=== PATIENT | male | born 1945 | race Caucasian/White ===

== ENCOUNTER 2016-08-20 14:01 | Emergency (ER) | payer OTHER ==
--- NOTE | 2016-08-20 14:31 | ED CLINICAL REPORT ---
Clinical Report - Physicians/Mid Levels [facility] [address] [place] [address] 08/20/2016 14:05 Patient: SONIA ROTH Time Seen: 1420; initial patient contact, initial documentation, patient care assumed. Arrived- By private vehicle. 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 HISTORY OF PRESENT ILLNESS Chief Complaint: LOWER EXTREMITY PAIN and SWELLING. The quality is noted to be similar to prior episodes. Not worsened by anything and relieved by anything. This started years and is still present. Symptoms located in the area of the left leg. The patient has had redness and swelling. No difficulty walking. No bladder dysfunction, bowel dysfunction, sensory loss or motor loss. ( pt states the wound has been there for years, and has never gone away, caregiver says she is new caregiver for him, and she thinks it has been there for only a week, pt's son putting hydrocortisone cream and rubbing alcohol on it). Patient denies an injury. Similar symptoms previously: Chronically. Recent medical care: Not recently seen/assessed. REVIEW OF SYSTEMS No fever. All systems otherwise negative, except as recorded above. PAST HISTORY See nurses notes. Diabetes mellitus. SOCIAL HISTORY Never smoker. No alcohol use or drug use. No recent travel. Is a local resident. He lives with a caregiver. FAMILY HISTORY Negative. ADDITIONAL NOTES The nursing notes have been reviewed with agreement regarding the chief complaint, HPI, ROS, PMH and patient medications and allergies. PHYSICAL EXAM Vital Signs: 08/20/2016 14:11 BP: 144/62. HR: 95. RR: 18. O2 saturation: 100%. Temp: 98.5 F. Have been reviewed as normal and appear to be correct. Appearance: Alert. Oriented X3. No acute distress. Eyes: Pupils equal, round and reactive to light. Eyes normal inspection. Respiratory: No respiratory distress. Skin: Skin intact. Skin warm and dry. Normal skin color. Normal skin turgor. Extremities: Left leg: moderate erythema and mild tenderness and swelling located in the anterior aspect of mid leg. Neurovascular intact distally. (wound noted to lower leg with surrounding erythema, warmth and swelling, wound scabbed over approx 4 cm x 3cm, no dc, no swelling of wound itself, only the extremity). No laceration, abrasion, ecchymosis, puncture wound or foreign body. No deformity. No limitation of weight bearing. Lower extremities do not exhibit normal ROM. Lower extremity edema present. Extremities otherwise negative. Gait: Abnormal gait. Gait not tested due to pain. Neuro: Oriented X 3. No motor deficit. No sensory deficit. PROGRESS AND PROCEDURES Patient and caregiver counseled in person regarding the patient's stable condition and diagnosis. 14:30. Differential Diagnosis: Other possible considerations: abscess, mrsa, cellulitis, nonhealing wound, pressure ulcer. Above considerations are based on history and physical exam. Differential diagnosis was discussed with patient. Disposition: Discharged home in good and unchanged condition (14:31). Condition: good and stable. CLINICAL IMPRESSION Superficial diabetic ulcer on the left lower leg. Erythema only present. Cellulitis present. No pressure ulcer, ischemic ulcer or venous stasis ulcer. INSTRUCTIONS Protect wound and keep wound area clean. Soak in warm soapy water. Apply bacitracin twice daily. Warnings: GENERAL WARNINGS: Return or contact your physician immediately if your condition worsens or changes unexpectedly, if not improving as expected, or if other problems arise. Specifically return if problem worsens. Prescription Medications: Bactrim DS: take 1 tablet orally every 12 hours for 10 days. No refill. Substitution is not permissible. Follow-up: Follow up with your doctor in about three days even if well and for wound check. Call for an appointment. Summary of care provided to patient. Understanding of the discharge instructions verbalized by patient. (Electronically signed by Ashley Hart A.R.N.P. 08/20/2016 14:42)
--- NOTE | 2016-08-20 14:31 | ED NURSING NOTES ---
Clinical Report - Nurses [facility] [address] 08/20/2016 14:05 Patient: SONIA ROTH TRIAGE Triage time 14:12. Acuity: LEVEL 3. Chief Complaint: LEFT LOWER EXTREMITY PAIN, SWELLING and REDNESS. Alert. --14:18 Valeri Marina R.N. 14:11 08/20/16. BP: 144/62. HR: 95. RR: 18. O2 saturation: 100%. Temp: 98.5 F. Pain level now 0/10. --14:18 Valeri Marina R.N. Weight: 97.5 kg stated. Height/Length: 68 inches Per Patient. BMI: 32.7. --14:17 Valeri Marina R.N. Medications None. --14:16 Valeri Marina R.N. Allergies No Known Drug Allergy. --14:16 Valeri Marina R.N. History Arrived by private vehicle, and accompanied by family. Primary physician (Rey). No injury occurred. This occurred (about 1 weeks). 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 PAST MEDICAL HX: Diabetes mellitus. SOCIAL HX: Never smoker. No alcohol use or drug use. --14:18 Valeri Marina R.N. PHYSICAL ASSESSMENT Ambulatory to room. Patient gowned. GENERAL / NEURO / PSYCH: Oriented X 4. EXTREMITIES: Left leg: tenderness and swelling (healing sore on left lower leg). --14:19 Valeri Marina R.N. NURSING PROGRESS NOTES Patient gowned. Patient identifiers checked. Side rails up. Patient ready for evaluation- ED physician notified. --14:19 Valeri Marina R.N. DISPOSITION / DISCHARGE Departure time: 14:36. Condition at departure: unchanged. No learning barriers present. Discharge instructions provided and reviewed with the patient. Patient verbalized understanding. Written instructions provided in Cambodian. The patient was discharged home and accompanied by caregiver. He left the Emergency Department ambulatory and via private vehicle. Driving (caregiver). --14:36 Valeri Marina R.N. Locked/Released at 08/20/2016 15:28 by Valeri Marina R.N.
--- NOTE | 2016-08-20 14:31 | ED CLINICAL REPORT ---
Clinical Report - Physicians/Mid Levels [facility] [address] [place] [address] 08/20/2016 14:05 Patient: SONIA ROTH Time Seen: 1420; initial patient contact, initial documentation, patient care assumed. Arrived- By private vehicle. 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 HISTORY OF PRESENT ILLNESS Chief Complaint: LOWER EXTREMITY PAIN and SWELLING. The quality is noted to be similar to prior episodes. Not worsened by anything and relieved by anything. This started years and is still present. Symptoms located in the area of the left leg. The patient has had redness and swelling. No difficulty walking. No bladder dysfunction, bowel dysfunction, sensory loss or motor loss. ( pt states the wound has been there for years, and has never gone away, caregiver says she is new caregiver for him, and she thinks it has been there for only a week, pt's son putting hydrocortisone cream and rubbing alcohol on it). Patient denies an injury. Similar symptoms previously: Chronically. Recent medical care: Not recently seen/assessed. REVIEW OF SYSTEMS No fever. All systems otherwise negative, except as recorded above. PAST HISTORY See nurses notes. Diabetes mellitus. SOCIAL HISTORY Never smoker. No alcohol use or drug use. No recent travel. Is a local resident. He lives with a caregiver. FAMILY HISTORY Negative. ADDITIONAL NOTES The nursing notes have been reviewed with agreement regarding the chief complaint, HPI, ROS, PMH and patient medications and allergies. PHYSICAL EXAM Vital Signs: 08/20/2016 14:11 BP: 144/62. HR: 95. RR: 18. O2 saturation: 100%. Temp: 98.5 F. Have been reviewed as normal and appear to be correct. Appearance: Alert. Oriented X3. No acute distress. Eyes: Pupils equal, round and reactive to light. Eyes normal inspection. Respiratory: No respiratory distress. Skin: Skin intact. Skin warm and dry. Normal skin color. Normal skin turgor. Extremities: Left leg: moderate erythema and mild tenderness and swelling located in the anterior aspect of mid leg. Neurovascular intact distally. (wound noted to lower leg with surrounding erythema, warmth and swelling, wound scabbed over approx 4 cm x 3cm, no dc, no swelling of wound itself, only the extremity). No laceration, abrasion, ecchymosis, puncture wound or foreign body. No deformity. No limitation of weight bearing. Lower extremities do not exhibit normal ROM. Lower extremity edema present. Extremities otherwise negative. Gait: Abnormal gait. Gait not tested due to pain. Neuro: Oriented X 3. No motor deficit. No sensory deficit. PROGRESS AND PROCEDURES Patient and caregiver counseled in person regarding the patient's stable condition and diagnosis. 14:30. Differential Diagnosis: Other possible considerations: abscess, mrsa, cellulitis, nonhealing wound, pressure ulcer. Above considerations are based on history and physical exam. Differential diagnosis was discussed with patient. Disposition: Discharged home in good and unchanged condition (14:31). Condition: good and stable. CLINICAL IMPRESSION Superficial diabetic ulcer on the left lower leg. Erythema only present. Cellulitis present. No pressure ulcer, ischemic ulcer or venous stasis ulcer. INSTRUCTIONS Protect wound and keep wound area clean. Soak in warm soapy water. Apply bacitracin twice daily. Warnings: GENERAL WARNINGS: Return or contact your physician immediately if your condition worsens or changes unexpectedly, if not improving as expected, or if other problems arise. Specifically return if problem worsens. Prescription Medications: Bactrim DS: take 1 tablet orally every 12 hours for 10 days. No refill. Substitution is not permissible. Follow-up: Follow up with your doctor in about three days even if well and for wound check. Call for an appointment. Summary of care provided to patient. Understanding of the discharge instructions verbalized by patient. (Electronically signed by Ashley Hart A.R.N.P. 08/20/2016 14:42)
--- NOTE | 2016-08-20 14:31 | ED NURSING NOTES ---
Clinical Report - Nurses [facility] [place] [address] 08/20/2016 14:05 Patient: SONIA ROTH TRIAGE Triage time 14:12. Acuity: LEVEL 3. Chief Complaint: LEFT LOWER EXTREMITY PAIN, SWELLING and REDNESS. Alert. --14:18 Valeri Marina R.N. 14:11 08/20/16. BP: 144/62. HR: 95. RR: 18. O2 saturation: 100%. Temp: 98.5 F. Pain level now 0/10. --14:18 Valeri Marina R.N. Weight: 97.5 kg stated. Height/Length: 68 inches Per Patient. BMI: 32.7. --14:17 Valeri Marina R.N. Medications None. --14:16 Valeri Marina R.N. Allergies No Known Drug Allergy. --14:16 Valeri Marina R.N. History Arrived by private vehicle, and accompanied by family. Primary physician (Rey). No injury occurred. This occurred (about 1 weeks). 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 PAST MEDICAL HX: Diabetes mellitus. SOCIAL HX: Never smoker. No alcohol use or drug use. --14:18 Valeri Marina R.N. PHYSICAL ASSESSMENT Ambulatory to room. Patient gowned. GENERAL / NEURO / PSYCH: Oriented X 4. EXTREMITIES: Left leg: tenderness and swelling (healing sore on left lower leg). --14:19 Valeri Marina R.N. NURSING PROGRESS NOTES Patient gowned. Patient identifiers checked. Side rails up. Patient ready for evaluation- ED physician notified. --14:19 Valeri Marina R.N. DISPOSITION / DISCHARGE Departure time: 14:36. Condition at departure: unchanged. No learning barriers present. Discharge instructions provided and reviewed with the patient. Patient verbalized understanding. Written instructions provided in Gabonese. The patient was discharged home and accompanied by caregiver. He left the Emergency Department ambulatory and via private vehicle. Driving (caregiver). --14:36 Valeri Marina R.N. Locked/Released at 08/20/2016 15:28 by Valeri Marina R.N.
--- NOTE | 2016-08-20 15:28 | ED MED RECONCILIATION SUMMARY ---
Patient: SONIA ROTH Medication Reconciliation Report [facility] VisitID: [id number] [address] [place] [address] 71y, M Registration Date/Time: 08/20/2016 Weight: 97.5 kg Height/Length: 68 in. BMI: 32.7 ALLERGIES: No Known Drug Allergy The patient's Home Medications are listed below: NONE. The source(s) of the original Home Medication information: Not obtained. The following Medications were given to the patient in the Emergency Department: None. The following Medications were prescribed to the patient: Bactrim DS: take 1 tablet orally every 12 hours for 10 days. No refill. Substitution is not permissible. -- Ashley Hart A.R.N.P.
--- NOTE | 2016-08-20 15:28 | ED MAR SUMMARY ---
..... Medication Administration Record [facility] [address] [place] [address] Patient: SONIA ROTH Visit ID: [id number] 71y, M Weight: 97.5 kg Height/Length: 68 in BMI: 32.7 ALLERGIES: No Known Drug Allergy
--- NOTE | 2016-08-20 15:28 | ED DISCHARGE INSTRUCTIONS ---
Patient: SONIA ROTH General Instructions [facility] VisitID: [id number] [place] [address] 71y, M Registration Date/Time: 08/20/2016 Superficial diabetic ulcer on the left lower leg. Erythema only present. Cellulitis present. No pressure ulcer, ischemic ulcer or venous stasis ulcer. INSTRUCTIONS Protect wound and keep wound area clean. Soak in warm soapy water. Apply bacitracin twice daily. Warnings: GENERAL WARNINGS: Return or contact your physician immediately if your condition worsens or changes unexpectedly, if not improving as expected, or if other problems arise. Specifically return if problem worsens. Prescription Medications: Bactrim DS: take 1 tablet orally every 12 hours for 10 days. No refill. Substitution is not permissible. Follow-up: Follow up with your doctor in about three days even if well and for wound check. Call for an appointment. Summary of care provided to patient. Understanding of the discharge instructions verbalized by patient. ADDITIONAL INFORMATION Sulfamethoxazole, Trimethoprim Oral tablet What is this medicine? SULFAMETHOXAZOLE; TRIMETHOPRIM or SMX-TMP (suhl fuh meth OK rosita zohl; trye METH oh prim) is a combination of a sulfonamide antibiotic and a second antibiotic, trimethoprim. It is used to treat or prevent certain kinds of bacterial infections. It will not work for colds, flu, or other viral infections. How should I use this medicine? Take this medicine by mouth with a full glass of water. Follow the directions on the prescription label. Take your medicine at regular intervals. Do not take it more often than directed. Do not skip doses or stop your medicine early. Talk to your upholstery bundler regarding the use of this medicine in children. Special care may be needed. This medicine has been used in children as young as 2 months of age. What side effects may I notice from receiving this medicine? Side effects that you should report to your doctor or health elderly caregiver as soon as possible: allergic reactions like skin rash or hives, swelling of the face, lips, or tongue breathing problems fever or chills, sore throat irregular heartbeat, chest pain joint or muscle pain pain or difficulty passing urine red pinpoint spots on skin redness, blistering, peeling or loosening of the skin, including inside the mouth unusual bleeding or bruising unusually weak or tired yellowing of the eyes or skin Side effects that usually do not require medical attention (report to your doctor or health elderly caregiver if they continue or are bothersome): diarrhea dizziness headache loss of appetite nausea, vomiting nervousness What may interact with this medicine? Do not take this medicine with any of the following medications: aminobenzoate potassium dofetilide metronidazole This medicine may also interact with the following medications: TAYA inhibitors like benazepril, enalapril, lisinopril, and ramipril cyclosporine digoxin diuretics indomethacin medicines for diabetes methenamine methotrexate phenytoin potassium supplements pyrimethamine sulfinpyrazone tricyclic antidepressants warfarin What if I miss a dose? If you miss a dose, take it as soon as you can. If it is almost time for your next dose, take only that dose. Do not take double or extra doses. Where should I keep my medicine? Keep out of the reach of children. Store at room temperature between 20 to 25 degrees C (68 to 77 degrees F). Protect from light. Throw away any unused medicine after the expiration date. What should I tell my health care provider before I take this medicine? They need to know if you have any of these conditions: anemia asthma being treated with anticonvulsants if you frequently drink alcohol containing drinks kidney disease liver disease low level of folic acid or [id number] dehydrogenase poor nutrition or malabsorption porphyria severe allergies thyroid disorder an unusual or allergic reaction to sulfamethoxazole, trimethoprim, sulfa drugs, other medicines, foods, dyes, or preservatives or trying to get breast-feeding What should I watch for while using this medicine? Tell your doctor or health elderly caregiver if your symptoms do not improve. Drink several glasses of water a day to reduce the risk of kidney problems. Do not treat diarrhea with over the counter products. Contact your doctor if you have diarrhea that lasts more than 2 days or if it is severe and watery. This medicine can make you more sensitive to the sun. Keep out of the sun. If you cannot avoid being in the sun, wear protective clothing and use a sunscreen. Do not use sun lamps or tanning beds/booths. You have been given the following additional information: Sulfamethoxazole, Trimethoprim Oral tablet (Electronically signed by Ashley Hart A.R.NCookiePCookie 08/20/2016 14:42)
--- NOTE | 2016-08-20 15:28 | ED DISCHARGE INSTRUCTIONS ---
Patient: SONIA ROTH General Instructions [facility] VisitID: [id number] [place] [address] 71y, M Registration Date/Time: 08/20/2016 Superficial diabetic ulcer on the left lower leg. Erythema only present. Cellulitis present. No pressure ulcer, ischemic ulcer or venous stasis ulcer. INSTRUCTIONS Protect wound and keep wound area clean. Soak in warm soapy water. Apply bacitracin twice daily. Warnings: GENERAL WARNINGS: Return or contact your physician immediately if your condition worsens or changes unexpectedly, if not improving as expected, or if other problems arise. Specifically return if problem worsens. Prescription Medications: Bactrim DS: take 1 tablet orally every 12 hours for 10 days. No refill. Substitution is not permissible. Follow-up: Follow up with your doctor in about three days even if well and for wound check. Call for an appointment. Summary of care provided to patient. Understanding of the discharge instructions verbalized by patient. ADDITIONAL INFORMATION Sulfamethoxazole, Trimethoprim Oral tablet What is this medicine? SULFAMETHOXAZOLE; TRIMETHOPRIM or SMX-TMP (suhl fuh meth OK rosita zohl; trye METH oh prim) is a combination of a sulfonamide antibiotic and a second antibiotic, trimethoprim. It is used to treat or prevent certain kinds of bacterial infections. It will not work for colds, flu, or other viral infections. How should I use this medicine? Take this medicine by mouth with a full glass of water. Follow the directions on the prescription label. Take your medicine at regular intervals. Do not take it more often than directed. Do not skip doses or stop your medicine early. Talk to your kosher butcher regarding the use of this medicine in children. Special care may be needed. This medicine has been used in children as young as 2 months of age. What side effects may I notice from receiving this medicine? Side effects that you should report to your doctor or health pharmacy customer care specialist as soon as possible: allergic reactions like skin rash or hives, swelling of the face, lips, or tongue breathing problems fever or chills, sore throat irregular heartbeat, chest pain joint or muscle pain pain or difficulty passing urine red pinpoint spots on skin redness, blistering, peeling or loosening of the skin, including inside the mouth unusual bleeding or bruising unusually weak or tired yellowing of the eyes or skin Side effects that usually do not require medical attention (report to your doctor or health pharmacy customer care specialist if they continue or are bothersome): diarrhea dizziness headache loss of appetite nausea, vomiting nervousness What may interact with this medicine? Do not take this medicine with any of the following medications: aminobenzoate potassium dofetilide metronidazole This medicine may also interact with the following medications: TAYA inhibitors like benazepril, enalapril, lisinopril, and ramipril cyclosporine digoxin diuretics indomethacin medicines for diabetes methenamine methotrexate phenytoin potassium supplements pyrimethamine sulfinpyrazone tricyclic antidepressants warfarin What if I miss a dose? If you miss a dose, take it as soon as you can. If it is almost time for your next dose, take only that dose. Do not take double or extra doses. Where should I keep my medicine? Keep out of the reach of children. Store at room temperature between 20 to 25 degrees C (68 to 77 degrees F). Protect from light. Throw away any unused medicine after the expiration date. What should I tell my health care provider before I take this medicine? They need to know if you have any of these conditions: anemia asthma being treated with anticonvulsants if you frequently drink alcohol containing drinks kidney disease liver disease low level of folic acid or [id number] dehydrogenase poor nutrition or malabsorption porphyria severe allergies thyroid disorder an unusual or allergic reaction to sulfamethoxazole, trimethoprim, sulfa drugs, other medicines, foods, dyes, or preservatives or trying to get breast-feeding What should I watch for while using this medicine? Tell your doctor or health pharmacy customer care specialist if your symptoms do not improve. Drink several glasses of water a day to reduce the risk of kidney problems. Do not treat diarrhea with over the counter products. Contact your doctor if you have diarrhea that lasts more than 2 days or if it is severe and watery. This medicine can make you more sensitive to the sun. Keep out of the sun. If you cannot avoid being in the sun, wear protective clothing and use a sunscreen. Do not use sun lamps or tanning beds/booths. You have been given the following additional information: Sulfamethoxazole, Trimethoprim Oral tablet (Electronically signed by Ashley Hart A.R.NCookiePCookie 08/20/2016 14:42)
--- NOTE | 2016-08-20 15:28 | ED MAR SUMMARY ---
..... Medication Administration Record [facility] [address] [place] [address] Patient: SONIA ROTH Visit ID: [id number] 71y, M Weight: 97.5 kg Height/Length: 68 in BMI: 32.7 ALLERGIES: No Known Drug Allergy
--- NOTE | 2016-08-20 15:28 | ED MED RECONCILIATION SUMMARY ---
Patient: SONIA ROTH Medication Reconciliation Report [facility] VisitID: [id number] [address] [place] [address] 71y, M Registration Date/Time: 08/20/2016 Weight: 97.5 kg Height/Length: 68 in. BMI: 32.7 ALLERGIES: No Known Drug Allergy The patient's Home Medications are listed below: NONE. The source(s) of the original Home Medication information: Not obtained. The following Medications were given to the patient in the Emergency Department: None. The following Medications were prescribed to the patient: Bactrim DS: take 1 tablet orally every 12 hours for 10 days. No refill. Substitution is not permissible. -- Ashley Hart A.R.N.P.
== END 2016-08-20 14:35 | disposition home or self-care (01) ==
LOC: ED SRH 14:01
DX: E11.622 Type 2 diabetes mellitus with other skin ulcer (principal); L97.829 Non-pressure chronic ulcer of other part of left lower leg with unspecified severity; E11.628 Type 2 diabetes mellitus with other skin complications; L03.116 Cellulitis of left lower limb

== ENCOUNTER 2016-10-21 11:26 | Emergency (ER) | payer OTHER ==
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
--- NOTE | 2016-10-24 05:07 | ED ORDER SUMMARY ---
..... Patient: SONIA ROTH OrderSheet [facility] VisitID: [id number] [address] [place] [address] 71y, M Registration Date/Time: 10/21/2016 ORDER SHEET Weight: 90.7 kg (stated) Allergies: No Known Drug Allergy GENERAL ORDERS: MEDICATION ORDERS: Penicillin V Potassium PO 500 mg (NOW) (12:00 10/21/2016 Lisset Gillespie) (Ack 12:12 Hope R.NCookie) (12:23 Hope R.N.) IV FLUIDS: ORDER SHEET NOTES: [Electronically signed by Alba De Jesus R.N. (12:31 10/21/2016)] [Electronically signed by Ceferino Kan Dr. (05:07 10/24/2016)] [Electronically locked/signed by Alba De Jesus R.N. (12:10/21/2016)]
--- NOTE | 2016-10-24 05:07 | ED ORDER SUMMARY ---
..... Patient: SONIA ROTH OrderSheet [facility] VisitID: [id number] [address] [place] [address] 71y, M Registration Date/Time: 10/21/2016 ORDER SHEET Weight: 90.7 kg (stated) Allergies: No Known Drug Allergy GENERAL ORDERS: MEDICATION ORDERS: Penicillin V Potassium PO 500 mg (NOW) (12:00 10/21/2016 Lisset Gillespie) (Ack 12:12 Hope R.NCookie) (12:23 Hope R.N.) IV FLUIDS: ORDER SHEET NOTES: [Electronically signed by Alba De Jesus R.N. (12:31 10/21/2016)] [Electronically signed by Ceferino Kan Dr. (05:07 10/24/2016)] [Electronically locked/signed by Alba De Jesus R.N. (12:10/21/2016)]
--- NOTE | 2016-10-24 05:07 | ED DISCHARGE INSTRUCTIONS ---
Patient: SONIA ROTH General Instructions [facility] VisitID: [id number] [address] [place] [address] 71y, M Registration Date/Time: 10/21/2016 10/21/2016 11:36 BP: 130/72. HR: 89. RR: 18. O2 saturation: 96%. Temp: 98.4 F. Blood pressure normal. Oxygen saturation normal. Dental caries (localized) acute right sided facial pain. INSTRUCTIONS Warnings: GENERAL WARNINGS: Return or contact your physician immediately if your condition worsens or changes unexpectedly, if not improving as expected, or if other problems arise. Specifically return if pain, vomiting, bleeding, breathing difficulty or fever. Your Current Medications: CONTINUE TAKING THE FOLLOWING MEDICATIONS: Bactrim Oral. Furosemide Oral. Glimepiride Oral. Potassium Chloride ER Oral. Pravastatin Sodium Oral. Sertraline HCl Oral. Prescription Medications: Penicillin V 500 mg: take 1 tab orally every 12 hours for 10 days. Dispense twenty (20). No refills. OTC Medications: Acetaminophen (available over the counter): take according to label instructions. Motrin (available over the counter): take according to label instructions. Follow-up: Return to the emergency department as needed. Follow up with a dentist in three days. Reason for referral: recheck today's concerns. Summary of care provided to patient via paper. Follow up with your doctor in three days. Reason for referral: recheck today's concerns. Summary of care provided to patient via paper. Screening today revealed the patient's blood pressure to be in the normal range. The patient should follow up with a primary care provider for blood pressure management. Understanding of the discharge instructions verbalized by patient. ADDITIONAL INFORMATION Dental Cavity A dental cavity is a pit or crater in the enamel surface of the tooth. This exposes the sensitive inner layer of the tooth and causes pain. If untreated, the cavity will get bigger and may cause an infection or abscess in the root of the tooth. An infection in the tooth is a much more serious problem and may require a root canal or removal of the entire tooth. The tooth pain may be made worse by drinking hot or cold fluids. It may spread from the tooth to the ear or jaw on the same side. Home Care: Avoid hot and cold foods, and liquids since your tooth may be sensitive to temperature changes. If your tooth is chipped or cracked, or if there is a large open cavity, apply OIL OF CLOVES (available akps-nti-hhyhuyd in drug stores) directly to the tooth to reduce pain. Some pharmacies carry an fies-hme-dxzhcsb "toothache kit." This contains oil of cloves and a paste, which can be applied over the exposed tooth to decrease sensitivity. An ice pack on your jaw over the sore area may help to reduce pain. You may use acetaminophen (Tylenol) or ibuprofen (Motrin, Advil) to control pain, unless another pain medicine was prescribed. [ NOTE: If you have liver disease or ever had a stomach ulcer, talk with your doctor before using these medicines.] If you have signs of an infection, an antibiotic will be given. Take it as directed. Follow-Up with your dentist as directed. Although your pain may go away with the treatment given, only a dentist can fully evaluate and treat this problem to prevent further tooth damage. Get Prompt Medical Attention if any of the following occur: Redness or swelling of the face Pain worsens or spreads to the neck Fever over 100.5 F (38C) Unusual drowsiness; headache or stiff neck; weakness or fainting Pus drains from the tooth or gum Difficulty swallowing or breathing Penicillin V Potassium Oral tablet What is this medicine? PENICILLIN V (pen i SILL in V) is a penicillin antibiotic. It is used to treat certain kinds of bacterial infections. It will not work for colds, flu, or other viral infections. How should I use this medicine? Take this medicine by mouth with a full glass of water. Follow the directions on the prescription label. Take your medicine at regular intervals. Do not take your medicine more often than directed. Take all of your medicine as directed even if you think your are better. Do not skip doses or stop your medicine early. Talk to your cotton puller regarding the use of this medicine in children. While this drug may be prescribed for selected conditions, precautions do apply. What side effects may I notice from receiving this medicine? Side effects that you should report to your doctor or health child care lead teacher as soon as possible: allergic reactions like skin rash or hives, swelling of the face, lips, or tongue breathing problems fever new symptoms of infection redness, blistering, peeling or loosening of the skin, including inside the mouth unusually weak or tired Side effects that usually do not require medical attention (report to your doctor or health child care lead teacher if they continue or are bothersome): diarrhea headache nausea, vomiting sore mouth or tongue stomach upset What may interact with this medicine? control pills methotrexate other antibiotics probenecid some vaccines What if I miss a dose? If you miss a dose, take it as soon as you can. If it is almost time for your next dose, take only that dose. Do not take double or extra doses. Where should I keep my medicine? Keep out of the reach of children. Store at room temperature between 15 and 30 degrees C (59 and 86 degrees F). Keep container tightly closed. Throw away any unused medicine after the expiration date. What should I tell my health care provider before I take this medicine? They need to know if you have any of these conditions: asthma bowel disease, like colitis eczema kidney disease an unusual or allergic reaction to penicillin, cephalosporins, other antibiotics or medicines, foods, tartrazine or other dyes, or preservatives or trying to get breast-feeding What should I watch for while using this medicine? Tell your doctor or health child care lead teacher if your symptoms do not improve. Do not treat diarrhea with over the counter products. Contact your doctor if you have diarrhea that lasts more than 2 days or if it is severe and watery. If you have diabetes, you may get a false-positive result for sugar in your urine. Check with your doctor or health child care lead teacher. control pills may not work properly while you are taking this medicine. Talk to your doctor about using an extra method of control. You have been given the following additional information: Dental Cavity Penicillin V Potassium Oral tablet (Electronically signed by Ceferino Kan Dr. 10/24/2016 5:07)
--- NOTE | 2016-10-24 05:07 | ED DISCHARGE INSTRUCTIONS ---
Patient: SONIA ROTH General Instructions [facility] VisitID: [id number] [address] [place] [address] 71y, M Registration Date/Time: 10/21/2016 10/21/2016 11:36 BP: 130/72. HR: 89. RR: 18. O2 saturation: 96%. Temp: 98.4 F. Blood pressure normal. Oxygen saturation normal. Dental caries (localized) acute right sided facial pain. INSTRUCTIONS Warnings: GENERAL WARNINGS: Return or contact your physician immediately if your condition worsens or changes unexpectedly, if not improving as expected, or if other problems arise. Specifically return if pain, vomiting, bleeding, breathing difficulty or fever. Your Current Medications: CONTINUE TAKING THE FOLLOWING MEDICATIONS: Bactrim Oral. Furosemide Oral. Glimepiride Oral. Potassium Chloride ER Oral. Pravastatin Sodium Oral. Sertraline HCl Oral. Prescription Medications: Penicillin V 500 mg: take 1 tab orally every 12 hours for 10 days. Dispense twenty (20). No refills. OTC Medications: Acetaminophen (available over the counter): take according to label instructions. Motrin (available over the counter): take according to label instructions. Follow-up: Return to the emergency department as needed. Follow up with a dentist in three days. Reason for referral: recheck today's concerns. Summary of care provided to patient via paper. Follow up with your doctor in three days. Reason for referral: recheck today's concerns. Summary of care provided to patient via paper. Screening today revealed the patient's blood pressure to be in the normal range. The patient should follow up with a primary care provider for blood pressure management. Understanding of the discharge instructions verbalized by patient. ADDITIONAL INFORMATION Dental Cavity A dental cavity is a pit or crater in the enamel surface of the tooth. This exposes the sensitive inner layer of the tooth and causes pain. If untreated, the cavity will get bigger and may cause an infection or abscess in the root of the tooth. An infection in the tooth is a much more serious problem and may require a root canal or removal of the entire tooth. The tooth pain may be made worse by drinking hot or cold fluids. It may spread from the tooth to the ear or jaw on the same side. Home Care: Avoid hot and cold foods, and liquids since your tooth may be sensitive to temperature changes. If your tooth is chipped or cracked, or if there is a large open cavity, apply OIL OF CLOVES (available jlzh-xrz-allijck in drug stores) directly to the tooth to reduce pain. Some pharmacies carry an ceny-xca-yviycnx "toothache kit." This contains oil of cloves and a paste, which can be applied over the exposed tooth to decrease sensitivity. An ice pack on your jaw over the sore area may help to reduce pain. You may use acetaminophen (Tylenol) or ibuprofen (Motrin, Advil) to control pain, unless another pain medicine was prescribed. [ NOTE: If you have liver disease or ever had a stomach ulcer, talk with your doctor before using these medicines.] If you have signs of an infection, an antibiotic will be given. Take it as directed. Follow-Up with your dentist as directed. Although your pain may go away with the treatment given, only a dentist can fully evaluate and treat this problem to prevent further tooth damage. Get Prompt Medical Attention if any of the following occur: Redness or swelling of the face Pain worsens or spreads to the neck Fever over 100.5 F (38C) Unusual drowsiness; headache or stiff neck; weakness or fainting Pus drains from the tooth or gum Difficulty swallowing or breathing Penicillin V Potassium Oral tablet What is this medicine? PENICILLIN V (pen i SILL in V) is a penicillin antibiotic. It is used to treat certain kinds of bacterial infections. It will not work for colds, flu, or other viral infections. How should I use this medicine? Take this medicine by mouth with a full glass of water. Follow the directions on the prescription label. Take your medicine at regular intervals. Do not take your medicine more often than directed. Take all of your medicine as directed even if you think your are better. Do not skip doses or stop your medicine early. Talk to your generator worker regarding the use of this medicine in children. While this drug may be prescribed for selected conditions, precautions do apply. What side effects may I notice from receiving this medicine? Side effects that you should report to your doctor or health careers adviser as soon as possible: allergic reactions like skin rash or hives, swelling of the face, lips, or tongue breathing problems fever new symptoms of infection redness, blistering, peeling or loosening of the skin, including inside the mouth unusually weak or tired Side effects that usually do not require medical attention (report to your doctor or health careers adviser if they continue or are bothersome): diarrhea headache nausea, vomiting sore mouth or tongue stomach upset What may interact with this medicine? control pills methotrexate other antibiotics probenecid some vaccines What if I miss a dose? If you miss a dose, take it as soon as you can. If it is almost time for your next dose, take only that dose. Do not take double or extra doses. Where should I keep my medicine? Keep out of the reach of children. Store at room temperature between 15 and 30 degrees C (59 and 86 degrees F). Keep container tightly closed. Throw away any unused medicine after the expiration date. What should I tell my health care provider before I take this medicine? They need to know if you have any of these conditions: asthma bowel disease, like colitis eczema kidney disease an unusual or allergic reaction to penicillin, cephalosporins, other antibiotics or medicines, foods, tartrazine or other dyes, or preservatives or trying to get breast-feeding What should I watch for while using this medicine? Tell your doctor or health careers adviser if your symptoms do not improve. Do not treat diarrhea with over the counter products. Contact your doctor if you have diarrhea that lasts more than 2 days or if it is severe and watery. If you have diabetes, you may get a false-positive result for sugar in your urine. Check with your doctor or health careers adviser. control pills may not work properly while you are taking this medicine. Talk to your doctor about using an extra method of control. You have been given the following additional information: Dental Cavity Penicillin V Potassium Oral tablet (Electronically signed by Ceferino Kan Dr. 10/24/2016 5:07)
--- NOTE | 2016-10-24 05:07 | ED MAR SUMMARY ---
..... Medication Administration Record [facility] [address] [place] [address] Patient: SONIA ROTH Visit ID: [id number] 71y, M Weight: 90.7 kg Height/Length: 68 in BMI: 30.4 ALLERGIES: No Known Drug Allergy Given 12:18 10/21/2016 Alba De Jesus R.N. Medication Administered: PENICILLIN V POTASSIUM [PO], Dose: 500 mg Tablets PO. Medication Ordered: Penicillin V Potassium PO 500 mg (NOW).
--- NOTE | 2016-10-24 05:07 | ED MED RECONCILIATION SUMMARY ---
Patient: SONIA ROTH Medication Reconciliation Report [facility] VisitID: [id number] [address] [place] [address] 71y, M Registration Date/Time: 10/21/2016 Weight: 90.7 kg Height/Length: 68 in. BMI: 30.4 ALLERGIES: No Known Drug Allergy The patient's Home Medications are listed below: CONTINUE TAKING THE FOLLOWING MEDICATIONS: Bactrim Oral Furosemide Oral Glimepiride Oral Potassium Chloride ER Oral Pravastatin Sodium Oral Sertraline HCl Oral The source(s) of the original Home Medication information: Not obtained. The following Medications were given to the patient in the Emergency Department: Penicillin V Potassium [PO] PO 500 mg, administered: 10/21/2016 12:18:00 PM The following Medications were prescribed to the patient: Acetaminophen (available over the counter): take according to label instructions. -- Ceferino Kan Dr. Motrin (available over the counter): take according to label instructions. -- Ceferino Kan Dr. Penicillin V 500 mg: take 1 tab orally every 12 hours for 10 days. Dispense twenty (20). No refills. -- Ceferino Kan Dr.
--- NOTE | 2016-10-24 05:07 | ED CLINICAL REPORT ---
Clinical Report - Physicians/Mid Levels [facility] [address] [place] [address] 10/21/2016 11:28 Patient: SONIA ROTH Time Seen: 1145. Arrived- By private vehicle. Historian- patient. HISTORY OF PRESENT ILLNESS Chief Complaint: DENTAL PAIN. This started past few days and is still present (unchanged). It was abrupt in onset and has been constant but is not gone now. Pain described as moderate. The patient has had moderate toothache (right lower molar). Similar symptoms previously: Several times. Recent medical care: Not recently seen/assessed. REVIEW OF SYSTEMS No fever, nausea, skin rash or vomiting. All systems otherwise negative, except as recorded above. PAST HISTORY See nurses notes. SOCIAL HISTORY Smoker- current status unknown (cigar). No alcohol use or drug use. Is a local resident. ADDITIONAL NOTES The nursing notes have been reviewed. PHYSICAL EXAM Vital Signs: 10/21/2016 11:36 BP: 130/72. HR: 89. RR: 18. O2 saturation: 96%. Temp: 98.4 F. Blood pressure normal. Oxygen saturation normal. Appearance: Alert. No acute distress. Head: Normal external inspection. Eyes: Pupils equal, round and reactive to light. Conjunctivae and eyelids normal. ENT: Moderate, localized dental decay (lower right second molar). No gingival tenderness or induration. Ears normal. Nose normal. Pharynx normal. Lips normal. Gums normal. No trismus present. Uvula midline. (no brawny edema). Neck: Trachea midline. No adenopathy. Thyroid normal. Neck supple. CVS: Normal heart rate and rhythm. Heart sounds normal. Pulses normal. Respiratory: No respiratory distress. Breath sounds normal. Chest nontender. Abdomen: Soft and nontender. No organomegaly. Skin: Normal skin color. No rash. Normal skin turgor. PROGRESS AND PROCEDURES Course of Care: The patient is a pleasant 71 yo presenting for evaluation of dental pain. Patient has been evaluated for retropharyngeal abscess, Ludwigs angina, acute necrotizing ulcerative gingivitis, and peritonsillar abscess. The exam findings are not consistent with any of these etiologies. Evidence for dental pain noted on examination. No concern for airway compromise at this time. Patient appears nontoxic. Vital signs are otherwise unremarkable. Do not feel patient is septic at this time. Patient be managed conservatively at this time with antibiotics and nonsteroidal anti-inflammatory medications as tolerated. Patient be instructed to avoid nonsteroidal anti-inflammatory medications if theyre allergic or have intolerances. Did not feel patient needs to be admitted to the hospital or require further emergency department workup/evaluation. Encouraged patient to follow up with the dentist as soon as possible ideally within the next 2 or 3 days. Reviewed risks and benefits of the procedure of dental block. Declines at this time. Patient has been reevaluated. No evidence of airway compromise. Patient continues to be nontoxic and in no acute distress. I discussed the patient workup, diagnosis, home care, follow-up, and return precautions. All questions answered. The patient expressed understanding of these instructions and was agreeable to them. Disposition: Discharged. Condition: good. CLINICAL IMPRESSION 10/21/2016 11:36 BP: 130/72. HR: 89. RR: 18. O2 saturation: 96%. Temp: 98.4 F. Blood pressure normal. Oxygen saturation normal. Dental caries (localized) acute right sided facial pain. INSTRUCTIONS Warnings: GENERAL WARNINGS: Return or contact your physician immediately if your condition worsens or changes unexpectedly, if not improving as expected, or if other problems arise. Specifically return if pain, vomiting, bleeding, breathing difficulty or fever. Your Current Medications: CONTINUE TAKING THE FOLLOWING MEDICATIONS: Bactrim Oral. Furosemide Oral. Glimepiride Oral. Potassium Chloride ER Oral. Pravastatin Sodium Oral. Sertraline HCl Oral. Prescription Medications: Penicillin V 500 mg: take 1 tab orally every 12 hours for 10 days. Dispense twenty (20). No refills. OTC Medications: Acetaminophen (available over the counter): take according to label instructions. Motrin (available over the counter): take according to label instructions. Follow-up: Return to the emergency department as needed. Follow up with a dentist in three days. Reason for referral: recheck today's concerns. Summary of care provided to patient via paper. Follow up with your doctor in three days. Reason for referral: recheck today's concerns. Summary of care provided to patient via paper. Screening today revealed the patient's blood pressure to be in the normal range. The patient should follow up with a primary care provider for blood pressure management. Understanding of the discharge instructions verbalized by patient. (Electronically signed by Ceferino Kan Dr. 10/24/2016 5:07)
--- NOTE | 2016-10-24 05:07 | ED MED RECONCILIATION SUMMARY ---
Patient: SONIA ROTH Medication Reconciliation Report [facility] VisitID: [id number] [address] [place] [address] 71y, M Registration Date/Time: 10/21/2016 Weight: 90.7 kg Height/Length: 68 in. BMI: 30.4 ALLERGIES: No Known Drug Allergy The patient's Home Medications are listed below: CONTINUE TAKING THE FOLLOWING MEDICATIONS: Bactrim Oral Furosemide Oral Glimepiride Oral Potassium Chloride ER Oral Pravastatin Sodium Oral Sertraline HCl Oral The source(s) of the original Home Medication information: Not obtained. The following Medications were given to the patient in the Emergency Department: Penicillin V Potassium [PO] PO 500 mg, administered: 10/21/2016 12:18:00 PM The following Medications were prescribed to the patient: Acetaminophen (available over the counter): take according to label instructions. -- Ceferino Kan Dr. Motrin (available over the counter): take according to label instructions. -- Ceferino Kan Dr. Penicillin V 500 mg: take 1 tab orally every 12 hours for 10 days. Dispense twenty (20). No refills. -- Ceferino Kan Dr.
--- NOTE | 2016-10-24 05:07 | ED MAR SUMMARY ---
..... Medication Administration Record [facility] [address] [place] [address] Patient: SONIA ROTH Visit ID: [id number] 71y, M Weight: 90.7 kg Height/Length: 68 in BMI: 30.4 ALLERGIES: No Known Drug Allergy Given 12:18 10/21/2016 Alba De Jesus R.N. Medication Administered: PENICILLIN V POTASSIUM [PO], Dose: 500 mg Tablets PO. Medication Ordered: Penicillin V Potassium PO 500 mg (NOW).
== END 2016-10-21 12:20 | disposition home or self-care (01) ==
LOC: ED SRH 11:26
DX: K02.9 Dental caries, unspecified (principal); R51 Headache; E11.9 Type 2 diabetes mellitus without complications; I10 Essential (primary) hypertension; Z79.899 Other long term (current) drug therapy; Z79.84 Long term (current) use of oral hypoglycemic drugs